=== PATIENT | male | born 1995 | race Caucasian/White ===

== ENCOUNTER 2017-11-26 10:14 | Emergency (ER) | payer OTHER ==
--- NOTE | 2017-11-26 11:24 | EDPHY ---
H & P Stated Complaint: Not eating due to "GI problems";depression worse;denies SI - Personal History Current Tetanus Diphtheria and Acellular Pertussis (TDAP): Yes - Medical/Surgical History Other PMH: depression - Social History Smoking Status: Current some day smoker Time Seen by Provider: 11/26/17 10:24 HPI/ROS: CHIEF COMPLAINT: HISTORY OF PRESENT ILLNESS: 22-year-old male history of depression in the ER voluntarily with his parents. History obtained from the patient stating that he has been feeling increasing depression and anxiety. Today is Sunday. On Sunday he requested that he returned home from school from [place] in [place]. When queried or guarding suicidal ideation he states "Not really, but kind of." Denies homicidal ideation. When asked if he he has been experiencing hallucinations he responds "I'm not really sure" and is unable to elaborate further. Admits to intermittent polysubstance abuse primarily marijuana and alcohol with cocaine use intermittently. Denies methamphetamine abuse. Information obtained from his parents in a separate conversation who state that the patient has a history of depression, suicidal ideation age 18, states that they were visiting him in [place] last week and he was exhibiting bipolar- like behavior. No suicidal ideation. No homicidal ideation. He notes that he seems to be confused. No history of head injury. No history of trauma Parents also notes that since returning from a year abroad in [place] over the summer he has been experiencing intermittent diarrhea, nausea and vomiting. He had extensive GI evaluation this past summer in [place] including negative upper and lower endoscopic evaluation. Patient is not complaining of abdominal pain nausea vomiting or diarrhea at this time. PRIMARY CARE PROVIDER: REVIEW OF SYSTEMS: 10 systems reviewed and negative with the exception of the elements mentioned in the history of present illness PAST MEDICAL & SURGICAL HISTORY: History of depression. History of suicidal ideation with hospitalization a 18 SOCIAL HISTORY:Positive for intermittent marijuana, cocaine and alcohol use. PHYSICAL EXAM (Prior to examination, patient consented to physical exam, hands were washed and my usual and customary physical exam procedures followed) 1) GENERAL: Well-developed, well-nourished, alert and oriented. Appears to be in no acute distress. 2) HEAD: Normocephalic, atraumatic 3) HEENT: Pupils equal, round, reactive to light bilaterally. Sclera anicteric. 4) NECK: Full range of motion, no meningeal signs. 5) LUNGS: Clear auscultation bilaterally, no wheezes, no rhonchi, no retractions. 6) HEART: Regular rate and rhythm, no murmur, no heave, no gallop. 7) ABDOMEN: No guarding, no rebound, no focal tenderness, negative McBurney's, negative Merino's, negative Rovsing's, negative peritoneal sign, 8) MUSCULOSKELETAL: Moving all extremities, no focal areas of tenderness, no obvious trauma. No peripheral edema or discoloration. 9) BACK: No CVA tenderness, no midline vertebral tenderness, no fluctuance, no step-off, no obvious trauma, no visual or palpable abnormality. 10) SKIN: No rash, no petechiae. 11) Psychiatric: Patient is oriented X 3, there is no agitation. DIFFERENTIAL DIAGNOSIS: In no particular include but limited to depression, bipolar disorder, polysubstance abuse (Karlso,Peyton Vivienne) Constitutional: Initial Vital Signs Temperature (C) 37.1 C 11/26/17 10:19 Heart Rate 96 11/26/17 10:19 Respiratory Rate 18 11/26/17 10:19 Blood Pressure 136/72 H 11/26/17 10:19 O2 Sat (%) 97 11/26/17 10:19 O2 Delivery Mode Room Air Allergies/Adverse Reactions: No Known Allergies Allergy (Unverified 11/26/17 10:23) Home Medications: Medication Instructions Recorded LORazepam [Ativan] 0.5 mg PO BID #6 tablet 11/26/17 Medical Decision Making ED Course/Re-evaluation: 11:29 a.m.: The patient provides me limited information about why he believes he is in the emergency department. He agreed to allow me to speak with his parents who have accompanied him to the hospital. He requested a not disclose medical history to them. I spoke with the parents. they informed me that patient does have a history of depression with history of suicidal ideation age 18 with hospitalization at that time. The patient currently tense [facility] and when they are visiting the patient in [place] few days ago he requested to comma home after a series of events including possible bipolar like behavior, episodes of batsheva like behavior followed by depressive like behavior. No definitive suicidal homicidal ideations. They think the patient would benefit from mental health evaluation. Discussed this with the patient he agrees to blood in urine and agrees to mental health evaluation. Currently emergency department voluntarily and I do not think he meets M1 criteria at this time. 11:54 a.m.: Patient complaining of increasing anxiety, "panic attack" he does agreed oral Ativan, and agrees to stay in the emergency department at this time voluntarily. 1:50 p.m.: Awaiting mental health remelter. Multiple discussions with parents and patient. Parents expressed concern about his ability to care for himself, history of polysubstance abuse. Patient is becoming increasingly agitated. In consultation Dr. Romeo Batres I think the patient meets criteria for being gravely disabled at this time and he has been placed on M1 hold. 5:00 p.m.: Care turned over to Dr. Maria D Corbett at this time awaiting mental health evaluation (Peyton Everett) This patient was seen by mental health and felt appropriate for outpatient treatment of anxiety and possible bipolar disorder. Admission was offered, but the patient and his parents decline. He will follow up with mental health as an outpatient. (Maria D Corbett) - Data Points Laboratory Results: Laboratory Results 11/26/17 11:30 11/26/17 11:30 11/26/17 11/26/17 11/26/17 12:00 11:30 11:30 WBC 6.23 10^3/uL 10^3/uL (3.80-9.50) RBC 5.52 10^6/uL 10^6/uL (4.40-6.38) Hgb 16.0 g/dL g/dL (13.7-17.5) Hct 46.6 % % (40.0-51.0) MCV 84.4 fL fL (81.5-99.8) MCH 29.0 pg pg (27.9-34.1) MCHC 34.3 g/dL g/dL (32.4-36.7) RDW 12.2 % % (11.5-15.2) Plt Count 249 10^3/uL 10^3/uL (150-400) MPV 10.5 fL fL (8.7-11.7) Neut % (Auto) 66.5 % % (39.3-74.2) Lymph % (Auto) 23.6 % % (15.0-45.0) [place] % (Auto) 7.7 % % (4.5-13.0) Eos % (Auto) 1.4 % % (0.6-7.6) Baso % (Auto) 0.6 % % (0.3-1.7) Nucleat RBC Rel Count 0.0 % % (0.0-0.2) Absolute Neuts (auto) 4.14 10^3/uL 10^3/uL (1.70-6.50) Absolute Lymphs (auto) 1.47 10^3/uL 10^3/uL (1.00-3.00) Absolute Monos (auto) 0.48 10^3/uL 10^3/uL (0.30-0.80) Absolute Eos (auto) 0.09 10^3/uL 10^3/uL (0.03-0.40) Absolute Basos (auto) 0.04 10^3/uL 10^3/uL (0.02-0.10) Absolute Nucleated RBC 0.00 10^3/uL 10^3/uL (0-0.01) Immature Gran % 0.2 % % (0.0-1.1) Immature Gran # 0.01 10^3/uL 10^3/uL (0.00-0.10) Sodium 141 mEq/L mEq/L (135-145) Potassium 4.2 mEq/L mEq/L (3.3-5.0) Chloride 101 mEq/L mEq/L (97-110) Carbon Dioxide 22 mEq/l mEq/l (22-31) Anion Gap 18 mEq/L H mEq/L (6-14) BUN 12 mg/dL mg/dL (7-23) Creatinine 0.7 mg/dL mg/dL (0.7-1.3) Estimated GFR > 60 Glucose 81 mg/dL mg/dL (70-100) Calcium 10.6 mg/dL H mg/dL (8.5-10.4) Salicylates < 1.0 mg/dL L mg/dL (2.0-20.0) Urine Opiates Screen NEGATIVE (NEGATIVE) Acetaminophen < 10 mcg/mL L mcg/mL (10-30) Urine Barbiturates NEGATIVE (NEGATIVE) Ur Phencyclidine Scrn NEGATIVE (NEGATIVE) Ur Amphetamine Screen NEGATIVE (NEGATIVE) U Benzodiazepines Scrn NEGATIVE (NEGATIVE) Urine Cocaine Screen NEGATIVE (NEGATIVE) U Marijuana (THC) Screen NON-NEGATIVE H (NEGATIVE) Ethyl Alcohol < 10 mg/dL mg/dL (0-10) Medications Given: Discontinued Medications Lorazepam (Ativan) 1 mg PO EDNOW ONE Stop: 11/26/17 11:55 Last Admin: 11/26/17 11:59 Dose: 1 mg Departure - Departure Disposition: Home, Routine, Self-Care Clinical Impression: Anxiety Condition: Good Instructions: Anxiety (ED) Additional Instructions: Follow-up with mental health as suggested. Return with any concerns. Referrals: [facility] [Clinic] - As per Instructions Stand Alone Forms: Statement of Treatment Prescriptions: LORazepam [Ativan] 0.5 mg PO BID #6 tablet
[2017-11-26 11:41] LABS: PLATELET COUNT 249 10^3/uL (150-400)
[2017-11-26] MEDS ORDERED: LORazepam 1 MG TAB PO ONE (11:54)
[2017-11-26 17:31] VITALS: BP 122/81
--- NOTE | 2017-11-26 18:14 | ASMTTCLDSP ---
TLC Discharge Disposition Disposition: Answers: Discharge If Answers: Yes DISCHARGED: Patient/family given suicide hotline info & SAMHSA brochure? Disposition Notes: Notes: Pt was offered voluntary mental health admission yet pt declined as our psychiatrist recommended hospitalization. Pt stated commitment or ability to keep self safe, denied thoughts of self harm or harm to others. Pt expressed a desire to obtain a psychiatrist and therapist in [place] where he lives. Pt's mother stated she did not want pt to be hospitalized and stated she believed it would be too "traumatic," for patient. Mother stated that pt will discharge to her care and she is going to assist pt in setting up resources. Pt was also given resources to the counseling center at [facility] where he attends. Discharge Concerns/Recommendations: Notes: In consultation with [facility] ED physician, Maria D Corbett MD, and on-call psychiatrist, Richard Herzog MD, both concurred that pt does not appear to meet 27-65 criteria requiring psychiatric hospitalization as pt does not appear to be an imminent risk of harm to self/others/gravely disabled due to a mental illness condition. Psychiatrist vacating M1 Richard Herzog MD Hold: Date and time M1 hold 11/26/2017 04:45 PM vacated (time format is hh:mm): Type of Hold: Answers: M1/72-hour Hold Date Signed: 11/26/2017 06:14 PM Electronically Signed By:Mae Donnelly
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
== END 2017-11-26 17:33 | disposition home or self-care (01) ==
DX: F41.9 Anxiety disorder, unspecified (principal); F17.200 Nicotine dependence, unspecified, uncomplicated; Z87.19 Personal history of other diseases of the digestive system
CPT/HCPCS: 80305; G0480